=== PATIENT | female | born 1980 | race Hispanic/Latino ===

== ENCOUNTER 2021-08-19 10:47 | Emergency (ER) | payer BC, SELFPAY ==
--- NOTE | ~2021-08-19 | XR_ITS ---
EXAMINATION: XR tibia fibula RT 2V INDICATION: Right leg pain TECHNIQUE: Two views of the right tibia and fibula are obtained. COMPARISON: None available FINDINGS: There is no fracture, dislocation, or subluxation. Bone alignment at the knee and ankle is normal. A plantar calcaneal enthesophyte is noted. IMPRESSION: 1. No acute osseous abnormality. Reviewed, dictated and finalized at location A.
--- NOTE | 2021-08-19 10:52 | ED.LOWEXIN ---
HPI - Extremity Injury (Lower) General Chief Complaint: Extremity Injury, Lower Stated Complaint: right leg pain Time Seen by Provider: 08/19/21 11:10 Source: patient and RN notes reviewed Mode of arrival: ambulatory Limitations: no limitations History of Present Illness HPI Narrative: 40-year-old female presents with concern for anterior right lower leg pain, numbness. She reports on Friday night she was dancing at a alliance party when her foot rolled out of her shoe. She reports after that she felt a cramping sensation in her anterior lateral right lower leg. She reports since then she has had pain in that area now has numbness in the anterior ankle. She reports she is used Aleve consistently without relief. Reports she took a leftover hydrocodone today that were provided mild relief. She reports pain is consistent whether resting, elevating, worsening with weightbearing. Reports pain caused her trouble sleeping. MD complaint: ankle injury Related Data Allergies Allergy/AdvReac Type Severity Reaction Status Date / Time No Known Allergies Allergy Verified 08/19/21 11:14 Review of Systems Review of Systems: CONSTITUTIONAL: Denies malaise, chills, sweats, or fever. SKIN: Denies lacerations, abrasions, warmth, rash or itching. MUSCULOSKELETAL: Reports pain to the anterior lateral right ankle and right lower leg reports numbness to the anterior ankle NEUROLOGIC: Denies numbness, weakness All systems reviewed & are unremarkable except as noted in HPI and below PMFSH Past Medical History Medical History (Updated 08/19/21 @ 11:49 by Helen Lucia NP) BMI 31.0-31.9,adult Constipation Elevated fasting glucose Elevated liver enzymes Encounter to establish care History of asthma Hyperlipidemia Pre-diabetes Seasonal allergies Skin abnormality Surgical History Surgical History (Updated 07/13/21 @ 09:37 by Raulito Simons CMA) Hx of cholecystectomy Family History Family History (Updated 07/13/21 @ 09:46 by Raulito Simons CMA) Father Diabetes mellitus Hypertension Depression Heart disease Mother Diabetes mellitus History of kidney cancer Grandparent Cancer Diabetes mellitus Grandparent Malignant neoplasm of prostate Social History Social History (Updated 07/13/21 @ 09:39 by Raulito Simons CMA) Smoking status: Never smoker Alcohol intake: never Substance use: never Comments At time of signature, agree with nursing past medical, surgical, social and family history. There is no relevant family history pertinent to the presenting complaint Exam Narrative: GENERAL: Well-appearing, well-nourished, and in no acute distress. HEAD: Normocephalic, atraumatic. EYES: PERRLA, conjunctivae clear NECK: Supple. CHEST: Speaks in full sentences. No respiratory distress. HEART: Regular rate and rhythm. Normal and equal peripheral pulses. EXTREMITIES: Right lower leg, ankle, foot, digits have normal strength and sensation, normal range of motion. No edema or ecchymosis. 5/5 strength with ankle and digit flexion and extension. Normal sensation with sensitivity to light touch and pain. General lateral tenderness. No open wounds, no skin tenting, no devitalized tissue or atrophy, no trophic changes, no obvious deformity, alignment normal, nearby joints and structures intact. Distal pulses palpable and equal bilaterally, skin warm, dry, pink. Capillary refill less than 3 seconds. Right calf 40.5cm Left calf 40cm SKIN: Warm, dry, no rash. NEURO: Alert and oriented x3. PSYCH: Normal mood and affect Course Course Emergency Course: Discussed with patient limited diagnostic ability [facility] for problems such as DVTs. Informed patient of this on the phone prior to patient arrival to the clinic. Patient does not choose at this time to go to the emergency room. Patient understands she needs to follow-up with her primary care doctor tomorrow. Patient given reasons to go the emergency room. Patient is aware of diagnosis,
[2021-08-19 10:58] VITALS: BP 131/87; PULSE 84; RESP 16; TEMP 37.3; O2SAT 98
== END 2021-08-19 12:00 | disposition home or self-care (01) ==
PROVIDERS: Emergency Provider Nurse Practitioner
DX: M79.604 Pain in right leg (principal); J45.909 Unspecified asthma, uncomplicated; E78.5 Hyperlipidemia, unspecified; R73.03 Prediabetes
CPT/HCPCS: 73590; 99213; G0463